=== PATIENT | male | born 1975 | race Caucasian/White ===

== ENCOUNTER 2018-09-09 15:18 | Emergency (ER) | payer OTHER ==
[~2018-09-09] VITALS: Ht 177.8 cm; Wt 85.7 kg
[2018-09-09] MEDS ORDERED: LIPITOR20 MG (15:23)
== END 2018-09-09 18:35 | disposition home or self-care (01) ==
LOC: ER 15:18
DX: R31.29 Other microscopic hematuria (principal)

== ENCOUNTER 2018-12-29 10:47 | Emergency (ER) | payer OTHER ==
[~2018-12-29] VITALS: Ht 177.8 cm; Wt 84.4 kg
[~2018-12-29 10:47] MED LIST: LIPITOR20 MG
[2018-12-29] MEDS ORDERED: LISINOPRIL5 MG (10:59)
== END 2018-12-29 11:53 | disposition home or self-care (01) ==
LOC: ER 10:47
DX: M54.5 Low back pain (principal)

== ENCOUNTER 2020-04-11 15:16 | Emergency (ER) | payer OTHER ==
[~2020-04-11] VITALS: Ht 177.8 cm; Wt 88.0 kg
[~2020-04-11 15:16] MED LIST changes: +LISINOPRIL5 MG
[2020-04-11] MEDS ORDERED: INDERAL XL80 MG (15:45)
[2020-04-11] MEDS ORDERED: LIPITOR40 M1 (15:45)
[2020-04-11] MEDS ORDERED: DESYREL (15:45)
== END 2020-04-11 19:58 | disposition home or self-care (01) ==
LOC: ER 15:16
DX: B34.9 Viral infection, unspecified (principal); A90 Dengue fever [classical dengue]; Z03.818 Encounter for observation for suspected exposure to other biological agents ruled out